=== PATIENT | female | born 1940 | race Caucasian/White ===

== ENCOUNTER → 2019-01-07 | Outpatient (CLI) | payer MEDICARE ==
--- NOTE | 2019-01-07 18:34 | Diagnostic Imaging Report ---
EXAM: CERVICAL 3 VIEWS DATE: 01/07/2019 5:13 PM INDICATION: Neck pain ^[id number] ^[id number] ^NECK PAIN COMPARISON: None FINDINGS: 3 views of the cervical spine shows C1-C6 on the lateral view. The cervical body heights and disc spaces are maintained. No subluxation or prevertebral soft tissue swelling. Anterior bridging osteophytes are seen from C2 through C5. The odontoid is intact. IMPRESSION: No acute bony abnormality. Degenerative changes are noted. Signed by: Dr. Nir Vincent M.D. on 01/07/2019 6:31 PM
== END ==
LOC: RAD 17:08
PROVIDERS: ATTEND Internal Medicine
DX: M54.2 Cervicalgia (principal)
CPT/HCPCS: 72040